=== PATIENT | male | born 1960 | race Caucasian/White ===

== ENCOUNTER 2025-07-08 19:56 | Inpatient (IN) | payer MEDICARE, OTHER ==
[2025-07-08 21:31] LABS: BASOPHILS ABSOLUTE AUTO 0.04 K/uL (0.00-0.10); BASOPHILS PERCENT AUTO 0.6 % (0.1-1.3); EOSINOPHILS PERCENT AUTO 0.0 % (0.0-5.4); IMMATURE GRAN PERCENT AUTO 0.3 % (0.0-0.7); LYMPHOCYTES ABSOLUTE AUTO 0.60 K/uL (0.8-3.3); LYMPHOCYTES PERCENT AUTO 8.6 % (11.4-47.7); MONOCYTES ABSOLUTE AUTO 0.59 K/uL (0.20-0.90); MONOCYTES PERCENT AUTO 8.4 % (3.3-12.6); NEUTROPHILS ABSOLUTE AUTO 5.74 K/uL (1.0-7.6); NEUTROPHILS PERCENT AUTO 82.1 % (40.0-78.1); PLATELET COUNT,PLT 156 K/uL (130-375); RED BLOOD CELL COUNT 4.97 M/uL (4.14-5.76); WHITE BLOOD CELL COUNT,WBC 7.0 K/uL (3.2-11.0)
[2025-07-08] MEDS: Ondansetron 4 MG/2 ML SDV IVPUSH ONE (21:32)
[2025-07-08 21:33] LABS: EOSINOPHILS ABSOLUTE AUTO 0.00 K/uL (0.00-0.40); IMMATURE GRAN ABSOLUTE AUTO 0.02 K/uL (0.00-0.23)
[2025-07-08 21:52] LABS: A/G RATIO 0.9 (1.2-2.2); ALANINE AMINOTRANSFERASE,ALT 35 U/L (12-78); ASPARTATE AMNIOTRANSFERASE,AST 27 U/L (15-37); BILIRUBIN TOTAL 0.8 mg/dL (0.2-1.0); BLOOD UREA NITROGEN,BUN 11 mg/dL (7-18); CARBON DIOXIDE,CO2 25 mmol/L (21-32); CHLORIDE,CL 102 mmol/L (100-108); CREATININE 1.1 mg/dL (0.8-1.3); EST CRCL DRUG DOSING (CG) 66.06 mL/min; ESTIMATED GFR 74 mL/min (>60); GLUCOSE RANDOM 140 mg/dL (74-106); POTASSIUM,K 4.0 mmol/L (3.6-5.2); PROTEIN TOTAL,TP 7.2 g/dL (6.4-8.2); SODIUM,NA 135 mmol/L (140-148)
[2025-07-09 00:56] LABS: APPEARANCE,URINE SLIGHTLY CLOUDY (CLEAR); GLUCOSE,URINE NEGATIVE (NEGATIVE); OCCULT BLOOD,URINE MODERATE (NEGATIVE)
[2025-07-09 01:03] LABS: SQUAMOUS EPITHELIAL CELLS,UR RARE /HPF; UROTHELIAL CELLS,URINE NOT SEEN /HPF
[2025-07-09] MEDS: Acetaminophen 1,000 MG in Premix Bag 1 BAG IV ONE (01:39)
[2025-07-09] MEDS ORDERED: Ketorolac 30 MG/ML SDV IVPUSH PRN (02:22)
[2025-07-09 02:33] LABS: APPEARANCE CSF CLEAR (CLEAR); COLOR,CSF COLORLESS (COLORLESS); TUBE NUMBER,CSF 2; TUBE VOLUME,CSF 0.8 mls
[2025-07-09 02:34] LABS: MONONUCLEAR, CSF 100 % (54-100); POLYMORPHONUCLEAR, CSF 0 % (0-7); RBC,CSF 10 /ul (0-0); WBC,CSF 3 /ul (0-5)
[2025-07-09] MEDS ORDERED: Glucose Gel 15 GM in 37.5 GM Tube PO PRN (03:51)
[2025-07-09] MEDS ORDERED: Sodium Chloride 0.9% 10 ML Syringe FLUSH PRN (03:51)
[2025-07-09] MEDS ORDERED: 50% Dextrose in Water 50 ML Syringe IV PRN (03:51)
[2025-07-09] MEDS ORDERED: Ondansetron 4 MG/2 ML SDV IV PRN (03:51)
[2025-07-09 06:35] LABS: PLATELET COUNT,PLT 121.0 K/uL (130-375); RED BLOOD CELL COUNT 4.27 M/uL (4.14-5.76); WHITE BLOOD CELL COUNT,WBC 5.5 K/uL (3.2-11.0)
[2025-07-09 06:39] LABS: BLOOD UREA NITROGEN,BUN 12.0 mg/dL (7-18); CARBON DIOXIDE,CO2 22.0 mmol/L (21-32); CHLORIDE,CL 106.0 mmol/L (100-108); CREATININE 1.0 mg/dL (0.8-1.3); EST CRCL DRUG DOSING (CG) 72.66 mL/min; ESTIMATED GFR 83.0 mL/min (>60); GLUCOSE RANDOM 107.0 mg/dL (74-106); POTASSIUM,K 3.7 mmol/L (3.6-5.2); SODIUM,NA 140.0 mmol/L (140-148)
[2025-07-09] MEDS: Insulin Lispro 100 Unit/ML 3 ML KwikPen SUBCUT SCH (08:47)
[2025-07-09] MEDS: Gadoteridol 279.3 MG/ML 20 ML SDV IV SCH (12:39)
[2025-07-10 08:56] LABS: A/G RATIO 0.8 (1.2-2.2); ALANINE AMINOTRANSFERASE,ALT 95 U/L (12-78); ASPARTATE AMNIOTRANSFERASE,AST 66 U/L (15-37); BILIRUBIN TOTAL 1.5 mg/dL (0.2-1.0); BLOOD UREA NITROGEN,BUN 10 mg/dL (7-18); CARBON DIOXIDE,CO2 25 mmol/L (21-32); CHLORIDE,CL 106 mmol/L (100-108); CREATININE 0.9 mg/dL (0.8-1.3); EST CRCL DRUG DOSING (CG) 80.74 mL/min; ESTIMATED GFR 94 mL/min (>60); GLUCOSE RANDOM 97 mg/dL (74-106); POTASSIUM,K 3.8 mmol/L (3.6-5.2); PROTEIN TOTAL,TP 5.6 g/dL (6.4-8.2); SODIUM,NA 140 mmol/L (140-148)
[2025-07-10 08:58] LABS: PLATELET COUNT,PLT 91 K/uL (130-375); RED BLOOD CELL COUNT 4.07 M/uL (4.14-5.76); WHITE BLOOD CELL COUNT,WBC 4.0 K/uL (3.2-11.0)
[2025-07-10 09:43] LABS: ATYPICAL LYMPHOCYTES RARE; BAND ABSOLUTE MAN 0.32 K/uL; BAND PERCENT MAN 8 % (5-11); LYMPHOCYTES ABSOLUTE MAN 0.56 K/uL (0.8-3.3); LYMPHOCYTES PERCENT MAN 14 % (24-44); MONOCYTES ABSOLUTE MAN 0.40 K/uL (0.20-0.90); MONOCYTES PERCENT MAN 10 % (2-6); NEUTROPHILS ABSOLUTE MAN 2.72 K/uL (1.0-7.6); SEG NEUTROPHILS PERCENT MAN 68 % (36-66)
[2025-07-10] MEDS: Piperacillin/Tazobactam/Dext 4.5 GM in Premix Bag 1 BAG IV SCH (22:26)
[2025-07-11 05:44] LABS: PLATELET COUNT,PLT 94 K/uL (130-375); RED BLOOD CELL COUNT 4.08 M/uL (4.14-5.76); WHITE BLOOD CELL COUNT,WBC 6.0 K/uL (3.2-11.0)
[2025-07-11 06:04] LABS: A/G RATIO 0.8 (1.2-2.2); ALANINE AMINOTRANSFERASE,ALT 79 U/L (12-78); ASPARTATE AMNIOTRANSFERASE,AST 43 U/L (15-37); BILIRUBIN TOTAL 0.9 mg/dL (0.2-1.0); BLOOD UREA NITROGEN,BUN 10 mg/dL (7-18); CARBON DIOXIDE,CO2 27 mmol/L (21-32); CHLORIDE,CL 106 mmol/L (100-108); CREATININE 0.8 mg/dL (0.8-1.3); EST CRCL DRUG DOSING (CG) 90.83 mL/min; ESTIMATED GFR 98 mL/min (>60); GLUCOSE RANDOM 83 mg/dL (74-106); POTASSIUM,K 4.0 mmol/L (3.6-5.2); PROTEIN TOTAL,TP 5.9 g/dL (6.4-8.2); SODIUM,NA 140 mmol/L (140-148)
[2025-07-11 06:15] LABS: ATYPICAL LYMPHOCYTES FEW; BAND ABSOLUTE MAN 0.06 K/uL; BAND PERCENT MAN 1 % (5-11); EOSINOPHILS ABSOLUTE MAN 0.36 K/uL (0.00-0.40); EOSINOPHILS PERCENT MAN 6 % (2-4); LYMPHOCYTES ABSOLUTE MAN 1.50 K/uL (0.8-3.3); LYMPHOCYTES PERCENT MAN 25 % (24-44); MONOCYTES ABSOLUTE MAN 0.54 K/uL (0.20-0.90); MONOCYTES PERCENT MAN 9 % (2-6); NEUTROPHILS ABSOLUTE MAN 3.54 K/uL (1.0-7.6); SEG NEUTROPHILS PERCENT MAN 59 % (36-66)
[2025-07-12 05:34] LABS: PLATELET COUNT,PLT 123 K/uL (130-375); RED BLOOD CELL COUNT 4.16 M/uL (4.14-5.76); WHITE BLOOD CELL COUNT,WBC 6.1 K/uL (3.2-11.0)
[2025-07-12 05:47] LABS: ANAPLASMA PHAGOCYTOPHILUM PCR Not Detected; BABESIA MICROTI BY PCR Not Detected; EHRLICHIA CHAFFEENSIS BY PCR Not Detected; EHRLICHIA EWINGII/CANIS BY PCR Not Detected; EHRLICHIA MURIS-LIKE BY PCR Not Detected
[2025-07-12 05:48] LABS: ATYPICAL LYMPHOCYTES FEW; BAND ABSOLUTE MAN 0.06 K/uL; BAND PERCENT MAN 1 % (5-11); EOSINOPHILS ABSOLUTE MAN 0.24 K/uL (0.00-0.40); EOSINOPHILS PERCENT MAN 4 % (2-4); LYMPHOCYTES ABSOLUTE MAN 2.20 K/uL (0.8-3.3); LYMPHOCYTES PERCENT MAN 36 % (24-44); MONOCYTES ABSOLUTE MAN 0.85 K/uL (0.20-0.90); MONOCYTES PERCENT MAN 14 % (2-6); NEUTROPHILS ABSOLUTE MAN 2.75 K/uL (1.0-7.6); SEG NEUTROPHILS PERCENT MAN 45 % (36-66)
[2025-07-12 05:53] LABS: A/G RATIO 0.9 (1.2-2.2); ALANINE AMINOTRANSFERASE,ALT 65 U/L (12-78); ASPARTATE AMNIOTRANSFERASE,AST 31 U/L (15-37); BILIRUBIN TOTAL 0.7 mg/dL (0.2-1.0); BLOOD UREA NITROGEN,BUN 11 mg/dL (7-18); CARBON DIOXIDE,CO2 30 mmol/L (21-32); CHLORIDE,CL 104 mmol/L (100-108); CREATININE 0.8 mg/dL (0.8-1.3); EST CRCL DRUG DOSING (CG) 90.83 mL/min; ESTIMATED GFR 98 mL/min (>60); GLUCOSE RANDOM 94 mg/dL (74-106); POTASSIUM,K 3.7 mmol/L (3.6-5.2); PROTEIN TOTAL,TP 6.3 g/dL (6.4-8.2); SODIUM,NA 142 mmol/L (140-148)
== END 2025-07-12 10:36 | disposition home or self-care (01) | DRG 869 ==
LOC: JP.ED 19:56 → JP.MS 07-09 02:30
PROVIDERS: ADMIT Hospitalist; ATTEND Student in an Organized Health Care Education/Training Program
PROC: 3E03329 Introduction of Other Anti-infective into Peripheral Vein, Percutaneous Approach (ICD-10-PCS; principal; 2025-07-08)
PROC: 009U3ZZ Drainage of Spinal Canal, Percutaneous Approach (ICD-10-PCS; 2025-07-09)
DX: A79.82 Anaplasmosis [A. phagocytophilum] (principal); R50.9 Fever, unspecified; R51.9 Headache, unspecified; F41.9 Anxiety disorder, unspecified; F32.A Depression, unspecified; Z91.048 Other nonmedicinal substance allergy status; L25.9 Unspecified contact dermatitis, unspecified cause; Z91.09 Other allergy status, other than to drugs and biological substances; Z79.82 Long term (current) use of aspirin; Z90.89 Acquired absence of other organs; Z79.899 Other long term (current) drug therapy; Z98.890 Other specified postprocedural states; I10 Essential (primary) hypertension; E78.00 Pure hypercholesterolemia, unspecified; E11.9 Type 2 diabetes mellitus without complications; Z90.49 Acquired absence of other specified parts of digestive tract
CPT/HCPCS: 36415; 62270; 71045 ×2; 80053; 81001; 82945; 83605; 84157; 85025; 86140; 86618 ×2; 87040 ×2; 87070; 87205; 87252; 87468; 87469; 87484; 87798 ×3; 89050; A9270 ×2; J0131; J1271; J2405; J2543; J7030 ×2; J7050; 70553; 70553-26; 80048; 80202; 82947; 83735; 85027; 87426-QW; 96361; 96365; 96366; 96367; 96375; 99222; 99232; 99238; 99284; 99285-25; A9579; J1650; J3373; J7040